=== PATIENT | male | born 1965 ===

== ENCOUNTER → 2018-09-22 | Emergency (ER) | payer OTHER ==
[~2018-09-22] VITALS: Ht 172.7 cm; Wt 65.8 kg
[~2018-09-22] MED LIST: DELTASONE20 MG PO; DEXILANT60 MG PO; VALACYCLOVIR500 MG PO
== END | disposition home or self-care (01) ==
LOC: ER 12:23
DX: K52.9 Noninfective gastroenteritis and colitis, unspecified (principal)